=== PATIENT | male | born 1970 | race Caucasian/White ===

== ENCOUNTER 2019-02-10 22:46 | Emergency (ER) | payer OTHER, BC ==
[2019-02-10 23:01] VITALS: BP 161/90; PULSE 881; TEMP 98; BMI 77.0
--- NOTE | 2019-02-10 23:11 | PDOC ---
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 Patient's foot slipped resulting in the strain of his calf muscle. Patient said he felt immediately pain. Patient denies any history of blood clots in the past or any risk factors for blood clots. Patient denies any swelling of the leg or foot other than in the area of the discomfort. Patient says he has history of similar injury in the past that resolved without any additional intervention other than anti-inflammatories. Patient denies any other injury. Allergies: as per nursing notes Past Medical History: none Social history: Lives with family. No smoking. No alcohol. No illicit drugs. Surgical history: None General: No fevers or chills, no weakness, no weight loss HEENT: No change in vision. No sore throat,. No ear pain CardioVascular: no chest discomfort. No shortness of breath Respiratory:No cough, or wheezing. Gastrointestinal: no nausea, vomiting, diarrhea or constipation, No rectal bleeding Genitourinary: No dysuria, hematuria, or frequency Musculoskeletal: Pain to left calf muscle as per HPI Neurologic: No headache, vertigo, dizziness or loss of consciousness Psychiatric: nor depression Skin: No rashes or easy bruising Endocrine: no increased thirst or abnormal weight change Allergic: no skin or latex allergy All other systems reviewed and normal GENERAL: The patient is awake, alert, and fully oriented, in no acute distress. HEAD: Normal with no signs of trauma. EYES: Pupils equal, round and reactive to light, extraocular movements intact, sclera anicteric, conjunctiva clear. EXTREMITIES:atraumatic, Normal range of motion, no edema. Left calf there is tenderness on palpation of the soleus muscle. There is no tenderness on palpation of the gastrocnemius. Neurovascular distally is intact NEUROLOGICAL: Normal speech, normal gait. PSYCH: Normal mood, normal affect. SKIN: Warm, Dry, normal turgor, no rashes or lesions noted. 02/10/19 23:11 Assessment and plan: This is a 48-year-old male with a muscle strain. 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 Patient is taking naproxen for the pain. Past History - Past Medical History COPD: No HTN: Yes - Psycho Social/Smoking Cessation Hx Smoking History: Unknown if ever smoked Have you smoked in the past 12 months: No Number of Cigarettes Smoked Daily: 0 Information on smoking cessation initiated: No Hx Alcohol Use: No Drug/Substance Use Hx: No *Physical Exam - Vital Signs Last Vital Signs Temp Pulse Resp BP Pulse Ox 98 F 881 H 14 161/90 98 02/10/19 22:49 02/10/19 22:49 02/10/19 22:49 02/10/19 22:49 02/10/19 22:49 Discharge - Discharge Information Problems reviewed: Yes Clinical Impression/Diagnosis: Strain of calf muscle Qualifiers: Encounter type: initial encounter Laterality: left Qualified Code(s): S86.812A - Strain of other muscle(s) and tendon(s) at lower leg level, left leg, initial encounter Condition: Good Disposition: HOME - Admission No - Follow up/Referral Referrals: Jael Lazcano MD [Primary Care Provider] - - Patient Discharge Instructions Additional Instructions: Take Aleve 2 tablets twice a day with food do not take on an empty stomach for the pain. You can return to active duty at this time however if you develop increased pain or difficulty walking it is important to follow-up with an orthopedist. Return to the emergency department immediately with ANY new, persistent or worsening symptoms. Continue any medications as previously prescribed by your physician. You should follow up with your primary doctor as soon as possible regarding today's emergency department visit. . Please make sure your doctor reviews the results of your emergency evaluation. Thank you for coming to the Emergency Department today for your care. It was a pleasure to see you today. Please note that your evaluation is INCOMPLETE until you follow-up with your doctor. - Post Discharge Activity
== END 2019-02-10 23:22 | disposition home or self-care (01) ==
LOC: FER 22:46
DX: S86.812A Strain of other muscle(s) and tendon(s) at lower leg level, left leg, initial encounter (principal); X58.XXXA Exposure to other specified factors, initial encounter; Y93.89 Activity, other specified; Y92.410 Unspecified street and highway as the place of occurrence of the external cause; Y99.0 Civilian activity done for income or pay; I10 Essential (primary) hypertension
CPT/HCPCS: 99282-25

== ENCOUNTER 2019-04-19 11:27 | Emergency (ER) | payer SELFPAY ==
[2019-04-19 11:40] VITALS: BP 153/100; PULSE 65; TEMP 97.9; BMI 34.9
--- NOTE | 2019-04-19 12:02 | PDOC ---
Attending Attestation - Resident Resident Name: NicoleAkin - ED Attending Attestation I have performed the following: I have examined & evaluated the patient, The case was reviewed & discussed with the resident, I agree w/resident's findings & plan, Exceptions are as noted - HPI HPI: 04/19/19 12:52 Injury to right second finger. Was lifting a heavy object that was dropped, catching his finger beneath. Small laceration, no bleeding, no pain. - Physicial Exam PE: 04/19/19 12:53 Small approximately 5 mm partial avulsion involving the volar aspect of the distal phalanx, distal pulp. Epidermis only. Good coverage of bone maintained. No involvement of the fingernail. - Medical Decision Making 04/19/19 12:54 Assessment: Minor laceration, partial avulsion, good pedicle. No swelling, deformity, or tenderness that might suggest fracture or other injury to the bone. Plan: Skin was elevated and the wound was scrubbed and irrigated with normal saline. Inspection revealed that it was superficial, with good coverage of the bone by soft tissue maintained. Hemostasis was obtained with pressure and bacitracin applied. Steri-Strips to approximate the edge of the avulsion. Rest and elevate. Keep dry. Wound care. Recheck if sign of infection. Ambulatory with no pain or other discomfort to follow-up as needed.
--- NOTE | 2019-04-19 12:02 | PDOC ---
History of Present Illness - General Chief Complaint: Laceration Stated Complaint: FINGER LACERATION Time Seen by Provider: 04/19/19 12:00 History Source: Patient - History of Present Illness Initial Comments: 04/19/19 12:10 Mr. Thomas is a 49 y/o M w/no PMH p/w laceration to R 2nd digit while at work. He reports lifting up a cabinet with a coworker when it slipped, slicing his finger. He reports immediate compression of the wound and a small amount of bleeding. He was encouraged by his supervisor car and yard to seek ED evaluation at this time. He denies any weakness, numbness, paresthesias in the finger or hand. No blood thinner use. Last tetanus booster was in 2011. Past History - Past Medical History Allergies/Adverse Reactions: Allergies Allergy/AdvReac Type Severity Reaction Status Date / Time No Known Allergies Allergy Verified 04/19/19 11:30 Home Medications: Ambulatory Orders Losartan Potassium 50 mg PO HS 04/19/19 COPD: No HTN: Yes - Immunization History TDAP Vaccination: Yes (2011) - Psycho Social/Smoking Cessation Hx Smoking History: Never smoked Have you smoked in the past 12 months: No Number of Cigarettes Smoked Daily: 0 Hx Alcohol Use: No Drug/Substance Use Hx: No Review of Systems - Review of Systems Able to Perform ROS?: Yes Comments:: 04/19/19 12:01 ROS: GENERAL/CONSTITUTIONAL: No fever or chills. No weakness. HEAD, EYES, EARS, NOSE AND THROAT: No change in vision. No ear pain or discharge. No sore throat. CARDIOVASCULAR: No chest pain or shortness of breath RESPIRATORY: No cough, wheezing, or hemoptysis. GASTROINTESTINAL: No nausea, vomiting, diarrhea or constipation. GENITOURINARY: No dysuria, frequency, or change in urination. MUSCULOSKELETAL: No joint or muscle swelling or pain. No neck or back pain. SKIN: Finger laceration. No rash NEUROLOGIC: No headache, vertigo, loss of consciousness, or change in strength/ sensation. ENDOCRINE: No increased thirst. No abnormal weight change HEMATOLOGIC/LYMPHATIC: No anemia, easy bleeding, or history of blood clots. ALLERGIC/IMMUNOLOGIC: No hives or skin allergy. *Physical Exam - Vital Signs Last Vital Signs Temp Pulse Resp BP Pulse Ox 97.9 F 65 15 153/100 100 04/19/19 11:29 04/19/19 11:29 04/19/19 11:29 04/19/19 11:29 04/19/19 11:29 - Physical Exam 04/19/19 12:01 PE: GENERAL: Awake, alert, and fully oriented, in no acute distress HEAD: No signs of trauma, normocephalic, atraumatic EYES: PERRLA, EOMI, sclera anicteric, conjunctiva clear ENT: Auricles normal inspection, hearing grossly normal, nares patent, oropharynx clear without exudates. Moist mucosa NECK: Normal ROM, supple, no lymphadenopathy, JVD, or masses LUNGS: No distress, speaks full sentences, clear to auscultation bilaterally HEART: Regular rate and rhythm, normal S1 and S2, no murmurs, rubs or gallops, peripheral pulses normal and equal bilaterally. ABDOMEN: Soft, nontender, normoactive bowel sounds. No guarding, no rebound. No masses EXTREMITIES : 1 cm partial avulsion of R 2nd digit. No active bleeding, no overlaying erythema. Otherwise Normal inspection, Normal range of motion, no edema. No clubbing or cyanosis NEUROLOGICAL: Cranial nerves II through XII grossly intact. Normal speech, normal gait, no focal sensorimotor deficits SKIN: Warm, Dry, normal turgor, no rashes or lesions noted Procedures - Laceration/Wound Repair Right Upper Anterior 2nd digit Wound Length: to 2.5 cm Wound Explored: clean Wound's Depth, Shape: superficial Betadine Prep: Yes Wound Repaired With: Steri-strips Number of Sutures: 3 Layer Closure: Yes Medical Decision Making - Medical Decision Making 04/19/19 12:05 49M w/no PMH p/w superficial partial avulsion of R 2nd digit, no ongoing bleeding, no distal neurovascular deficits. Plan: Irrigate, clean wound Steri strip closure TDaP booster Dispo: Discharge Discharge - Discharge Information Problems reviewed: Yes Clinical Impression/Diagnosis: Avulsion of skin of finger Qualifiers: Encounter type: initial encounter Qualified Code(s): S61.209A - Unspecified open wound of unspecified finger without damage to nail, initial encounter Condition: Good Disposition: HOME - Admission No - Follow up/Referral Referrals: Sandro Kaminski MD [Primary Care Provider] - - Patient Discharge Instructions Patient Printed Discharge Instructions: DI for Avulsion Laceration (Not Requiring Sutures) Additional Instructions: You were seen in the ER after an injury at work. We cleaned and rinsed out the wound, and closed it with tight bandages. Please follow up with your primary care provider as soon as possible, in the next 7 days. Please return to the ER if you develop weakness, high fevers, lose sensation in the finger, have worsening pain, or notice a change in color of the finger or hand. - Post Discharge Activity
[2019-04-19] MEDS ORDERED: TETANUS AND DIPHTHERIA TOXOID 0.5 ML DISP.SYRIN IM ONE ×2 (12:22→12:24)
== END 2019-04-19 12:30 | disposition home or self-care (01) ==
LOC: FER 11:27
PROC: 0HQFXZZ Repair Right Hand Skin, External Approach (ICD-10-PCS; principal; 2019-04-19)
PROC: 3E0234Z Introduction of Serum, Toxoid and Vaccine into Muscle, Percutaneous Approach (ICD-10-PCS; 2019-04-19)
DX: S61.210A Laceration without foreign body of right index finger without damage to nail, initial encounter (principal); W22.8XXA Striking against or struck by other objects, initial encounter; Y93.89 Activity, other specified; Y92.89 Other specified places as the place of occurrence of the external cause; Y99.0 Civilian activity done for income or pay; I10 Essential (primary) hypertension
CPT/HCPCS: 99283-25